=== PATIENT | male | born 1980 | race Caucasian/White ===

== ENCOUNTER 2018-05-12 21:04 | Emergency (ER) | payer OTHER ==
[2018-05-12] MEDS ORDERED: Ketorolac Tromethamine 30 MG/ML VIAL ONE (21:19)
--- NOTE | 2018-05-12 22:01 | CT ---
CT OF THE FACIAL BONES 05/12/18 COMPARISON: None. HISTORY: Facial pain, trauma. TECHNIQUE: Serial axial CT imaging is obtained at 2 mm intervals through the facial bones without contrast. Josh nal and sagittal reformatted imaging obtained. FINDINGS: There is mucosal thickening involving the alveolar recess of the left maxillary sinus. The imaged bra in parenchyma appears grossly unremarkable. The frontal sinuses are clear. The right maxillary sinus, bilateral sphenoid sinuses, and bilateral e thmoid air cells are unremarkable. The visualized portions of bilateral mastoid air cells are well ae rated. There is no evidence for fracture involving the nasal bones, the zygomatic arches, or the pterygoid p lates. There is no mandibular fracture seen. Neither temporomandibular joint is dislocated. The orbital floor and the medial orbital wall appears intact bilaterally. There are numerous dental caries as well as numerous periapical abscesses involving multiple axillary and mandibular teeth. IMPRESSION: No displaced fracture. POS: [facility]
== END 2018-05-12 22:20 | disposition home or self-care (01) ==
LOC: SCSER 21:04
DX: K02.9 Dental caries, unspecified (principal); K04.7 Periapical abscess without sinus
CPT/HCPCS: 70486; 96372; J1885

== ENCOUNTER 2022-09-25 05:39 | Emergency (ER) | payer OTHER | END 2022-09-25 06:32 | disposition home or self-care (01) | LOC: ERS 05:39 | DX: M79.672 Pain in left foot (principal) | CPT/HCPCS: 99283 ==